=== PATIENT | male | born 1955 | race Caucasian/White ===

== ENCOUNTER 2017-09-02 10:52 | Emergency (ER) | payer BC ==
--- NOTE | 2017-09-02 11:34 | EDPHY ---
H & P Time Seen by Provider: 09/02/17 11:25 HPI/ROS: CHIEF COMPLAINT: Injury to left 4th and 5th digits HISTORY OF PRESENT ILLNESS: 62-year-old ambidextrous male with up-to-date tetanus was using a log splitter when he got his 4th and 5th digit distal phalanx caught and sustained partial amputation of the distal tips of the distal phalanx of said digits. Complaining of pain. This was accidental. Occurred shortly prior to arrival. REVIEW OF SYSTEMS: A ten point review of systems was performed and is negative with the exception of the items mentioned in the HPI PAST MEDICAL & SURGICAL HISTORY: No anticoagulant use, tetanus up-to-date SOCIAL HISTORY: PHYSICAL EXAM (Prior to examination, patient consented to physical exam, hands were washed and my usual and customary physical exam procedures followed) 1) GENERAL: Well-developed, well-nourished, alert and oriented. Appears to be in no acute distress. 2) HEAD: Normocephalic 3) HEENT: Sclera anicteric 4) NECK: Full range of motion 5) LUNGS: Breathing comfortably 6) HEART: Regular rate and rhythm,. 7) ABDOMEN: No guarding s, 8) MUSCULOSKELETAL: Moving all extremities, partial amputation of the distal portion of the 4th and 5th digits 9) BACK: No visual or palpable abnormality. 10) SKIN:Complete amputation of the distal portion of the left 4th and 5th digits with visible osseous fragments. Hemostatic. 11) Psychiatric: Patient is oriented X 3, there is no agitation. DIFFERENTIAL DIAGNOSIS: In no particular order including but not limited to fracture, amputation, cellulitis Smoking Status: Never smoked Constitutional: Initial Vital Signs Temperature (C) 36.5 C 09/02/17 11:03 Heart Rate 75 09/02/17 11:03 Respiratory Rate 18 09/02/17 11:03 Blood Pressure 135/87 H 09/02/17 11:03 O2 Sat (%) 98 09/02/17 11:03 O2 Delivery Mode Room Air Allergies/Adverse Reactions: orange juice [oranges] Allergy (Intermediate, Verified 09/02/17 11:03) Penicillins Allergy (Verified 09/02/17 11:03) Home Medications: Medication Instructions Recorded Esomeprazole Magnesium 40 mg PO DAILY 04/12/15 [Esomeprazole Magnesium] Herbals/Supplements -Info Only 1 ea PO DAILY 04/12/15 Metoprolol Succinate Xr [Toprol Xl] 25 mg PO DAILY #30 tab.sr 04/13/15 Amlodipine Besylate 09/02/17 Cephalexin [Keflex] 500 mg PO TID 7 Days cap 09/02/17 traMADol [Ultram 50 mg (*)] 50 mg PO Q4 #10 tab 09/02/17 MDM/Departure - [facility] Procedures: Procedure: Digital nerve block Indication: Anesthesia and wound cleaning Indications risks benefits discussed with patient he consents. 0.5% bupivacaine administered in usual and customary digital nerve block fashion to the 4th and 5th digits achieving anesthesia distally. Patient tolerated procedure well. Medications Given: Discontinued Medications Cefazolin Sodium/Dextrose (Ancef 1 Gm (Premix)) 50 mls @ 200 mls/hr IV EDNOW ONE PRN Reason: Protocol Stop: 09/02/17 11:48 Last Admin: 09/02/17 11:49 Dose: 50 mls ED Course/Re-evaluation: 11:30 a.m.: Will plan on consultation with hand surgeon as patient will more than likely necessitate rongeur of the 4th and 5th digits of the left hand. IV Ancef will be administered. Patient has a listed penicillin allergy, specifically inquired about prior history of cephalosporins he denies allergic reaction to cephalosporins. 12:45 p.m.: Electronic consultation with hand surgery Dr. Bryce Shah who will come to the ER Re-evaluation with serial exams. Procedure per Dr. Bryce Shah performed rongeur and wound closure in the ER. - Depart Disposition: Home, Routine, Self-Care Clinical Impression: Partial amputation left 4th & 5th digit Condition: Good Instructions: Cephalexin (By mouth), Oxycodone/Acetaminophen (By mouth), Finger Amputation (ED) Additional Instructions: Return to the ER if you develop redness, swelling, discharge, warmth to the wound, red streaks going up your arm, or any other symptoms that concern you. Prescriptions: Cephalexin [Keflex] 500 mg PO TID 7 Days cap traMADol [Ultram 50 mg (*)] 50 mg PO Q4 #10 tab Referrals: Bryce Shah MD [Medical Doctor] - 5-7 days, call for appt.
[2017-09-02 15:53] VITALS: BP 130/78
--- NOTE | 2017-09-02 16:54 | GCON ---
[f rep st] CONSULTATION EMERGENCY ROOM NOTE DATE OF CONSULTATION: 09/02/2017 CHIEF COMPLAINT: Lacerations of little and ring fingers of left hand with partial tip amputations. HISTORY OF PRESENTING COMPLAINT: The patient is a 62-year-old man who was helping his neighbor with a wood splitter when he caught his gloved left hand in the mechanism. He sustained injuries to the little and ring finger tips. He is ambidextrous. PAST MEDICAL HISTORY: Generally healthy. HABITS: Nonsmoker. MEDICATIONS: He takes metoprolol at home, as well as omeprazole. EXAMINATION: GENERAL: He is a pleasant, healthy-looking 62-year-old male. EXTREMITIES: His extremity exam reveals a flapping injury of the tip of the left little finger on primarily the ulnar side of the finger, with loss of the nail, but most of the nail bed intact dorsally. The flap is stellate and flapping in nature, but there appears to be just a small amount of tissue missing. On the ring finger, there is exposure of the distal part of the distal phalanx with about half of the distal sterile matrix of the nail bed gone and a loss of pulp tissue and with significant exposed bone. Treatment rendered: Fingers had been blocked prior to my arrival. Further local anesthetic was placed. Wounds were cleaned with Betadine. In the case of the little finger, things were pieced together with sutures. Total length of closure on that finger was 2 cm. On the nail bed, 5-0 chromic was used, and on the skin, 5-0 Prolene. The ring finger, decision was made to create a volar V-Y flap in order to bring soft tissue out to cover the exposed bone. Flap was advanced and sutured with 5-0 Prolene. On both fingers, foil from a suture packet was used to split the nail bed, and it was sutured proximally with 5-0 Prolene and distally with 5-0 Prolene in both cases. Dressings of Xeroform and gauze were applied. DISCHARGE PLAN AND FOLLOWUP: Prescriptions will be given for tramadol and for cephalexin. Instructions were given to keep the hand elevated, and I will plan to see him in my office for a dressing change in 4 days' time. /[id number]/MODL MTDD
== END 2017-09-02 15:53 | disposition home or self-care (01) ==
PROC: 3E0T3BZ Introduction of Anesthetic Agent into Peripheral Nerves and Plexi, Percutaneous Approach (ICD-10-PCS; principal; 2017-09-02)
DX: S68.127A Partial traumatic metacarpophalangeal amputation of left little finger, initial encounter (principal); S68.125A Partial traumatic metacarpophalangeal amputation of left ring finger, initial encounter; W45.8XXA Other foreign body or object entering through skin, initial encounter
CPT/HCPCS: 96365; J0690